=== PATIENT | male | born 1955 | race Caucasian/White ===

== ENCOUNTER 2018-01-24 12:28 | Emergency (ER) | payer MEDICAID ==
[2018-01-24] MEDS: FLUORESCEIN STRIP LEFT EYE (13:43)
[2018-01-24] MEDS: TETRACAINE 0.5% 4 ML OPH BOTH EYES (13:43)
[2018-01-24] MEDS: FLUORESCEIN STRIP RIGHT EYE (13:43)
== END 2018-01-24 14:10 | disposition home or self-care (01) ==
LOC: FTE 12:28
DX: H92.02 Otalgia, left ear (principal)
CPT/HCPCS: 99283; Z7502